=== PATIENT | male | born 1950 | race Caucasian/White ===

== ENCOUNTER 2017-02-19 11:07 | Day surgery (SDC) | payer MEDICARE ==
[~2017-02-19 11:07] MED LIST: ACETAMINOPHEN 1,000 MG/100 ML BTL IV ONE; ACETAMINOPHEN 1000MG/100 ML PREMIX IV ONE; CLINDAMYCIN 600MG/50ML PREMIX 50 ML IVPB ONE; CLINDAMYCIN 600MG/50ML PREMIX 600 MG/50 ML BAG IVPB ONE; FAMOTIDINE 20MG TABLET PO ONE; MECLIZINE 25 MG TABLET PO ONE; METOCLOPRAMIDE 10 MG TABLET PO ONE
[2017-02-19 11:47] LABS: BASO % 0.4 % (0-6); EOS % 2.1 % (0-6); GRAN % 66.8 % (47-80); HEMATOCRIT 44.6 % (42.0-52.0); HEMOGLOBIN 14.9 gm/dl (14.0-18.0); LYMPH % 22.6 % (16-45); MEAN CELL VOLUME 86.6 fl (81-97); MEAN CORPUSCULAR HEMOGLOBIN 28.9 pg (27-33); MEAN CORPUSCULAR HGB CONC 33.4 g/dl (32-36); MEAN PLATELET VOLUME 10.2 fl (7.4-10.4); MONO % 8.1 % (0-9); PLATELET COUNT 245 K/uL (130-400); RED BLOOD COUNT 5.15 M/uL (4.40-5.70); RED CELL DISTRIBUTION WIDTH 13.6 % (11.5-14.5); WHITE BLOOD COUNT W/O DIFF 7.6 K/uL (4.2-12.2)
[2017-02-19 12:03] LABS: BLOOD UREA NITROGEN 25 mg/dL (9-20); EST GLOMERULAR FILTRATION RATE > 60 ml/min; GLUCOSE,RANDOM 107 mg/dL (70-110)
[2017-02-19] MEDS ORDERED: FENTANYL PF 100MCG/2ML VIAL IV ONE (14:00)
[2017-02-19] MEDS ORDERED: MIDAZOLAM HCL 2MG/2ML VIAL IV ONE (14:00)
[2017-02-19] MEDS ORDERED: LIDOCAINE 2% MDV (20MG/ML) 20ML VIAL IV ONE (14:00)
[2017-02-19] MEDS ORDERED: SUCCINYLCHOLINE 20 MG/ML 10ML IVP ONE (14:00)
[2017-02-19] MEDS ORDERED: ROPIVACAINE HCL (NAROPIN) /PF 5MG/ML 20ML VIAL IV ONE (14:00)
[2017-02-19] MEDS ORDERED: PROPOFOL 10 MG/ML VIAL IV ONE (14:00)
[2017-02-19] MEDS ORDERED: SEVOFLURANE 250 ML INH ONE (14:00)
[2017-02-19] MEDS ORDERED: HYDROMORPHONE HCL 2 MG/ML VIAL IV ONE (15:35)
[2017-02-19] MEDS ORDERED: BUPIVACAINE 0.25% W/EPI MPF 30ML VIAL IVP ONE (15:35)
[2017-02-19] MEDS ORDERED: HYDROCODONE/APAP 5/325MG TABLET PO ONE (15:35)
--- NOTE | 2017-02-20 16:39 | Operative Note ---
DATE OF SURGERY: 02/19/2017. REFERRING PHYSICIAN: Dr. Ananda Haddad D.O. PREOPERATIVE DIAGNOSIS: Incisional hernia. POSTOPERATIVE DIAGNOSIS: Incisional hernia. OPERATION: Laparoscopic incisional hernia repair with mesh. Indication: Patient is an 84-year-old male who had a prior robotic prostatectomy. He developed a hernia at his periumbilical site. We did discuss repair, risks, benefits, alternatives. Risks include bleeding, infection, acute and chronic pain, recurrence, injury to underlying visceral structures, and he understood this fully. Consent was signed, questions answered. PROCEDURE: He was taken to the operating room. Placed in supine position. General anesthesia was administered per Department of Anesthesia. Patient's abdomen was prepped and draped in usual sterile fashion. He did undergo a preoperative TAP block per Department of Anesthesia, as well as received prep with antibiotics. At this time, orogastric tube had been inserted. Left upper quadrant region was anesthetized with a total of 3 mL of 0.25% Sensorcaine with epinephrine. A 1.5 cm left upper quadrant incision was made over [place]. Through this, an 11 mm Visiport was placed. All the abdominal layers were traversed under direct visualization until the peritoneal cavity was entered. At this time, we did switch to a 10 mm angled lens. Patient had clustering of 3 hernias just above and to the right of his navel. There were no adhesions, no bowel noted. At this time, an additional 5 mm in the right flank and a 5 mm left flank were then placed. At this time, this was mapped out. The cluster of hernias measured about 3 cm total. A 20 x 15 Proceed mesh was obtained. Double scroll technique was used for 4 preplaced cardinal stitches were placed on the mesh. This was unscrolled upon itself and placed in the peritoneal cavity. The cephalad and caudad transfascial stitches were grasped and held in place. Each side was unscrolled and held in place, as well. A secured cap tacking device was used to tack the mesh in place in a 360 degree fashion radially around the mesh. Inner crown was also placed. The transfascial stitches were then tied down. These were trimmed. Skin dimpling was released. The scope was turned around. There was no bleeding noted and no bowel injury noted. Pneumoperitoneum was released and all ports removed. The fascia was closed with 0 Vicryl in [id number] fashion, the skin in all 3 ports closed with 4-0 Vicryl. He was taken to the recovery room in satisfactory condition. FINDINGS AT TIME OF SURGERY: Incisional hernia. Repaired as above with a 20 x 15 cm Proceed. MTDD
== END 2017-02-19 15:15 | disposition home or self-care (01) ==
LOC: SUR 11:07
PROVIDERS: ATTEND Surgery
DX: K43.2 Incisional hernia without obstruction or gangrene (principal); I10 Essential (primary) hypertension
CPT/HCPCS: 49654; 00832; 85025; 80048; 93005; 93010; 64486; J3010; J1170; J2795; 76942; J0330

== ENCOUNTER 2017-05-09 11:46 | Day surgery (SDC) | payer MEDICARE ==
[2017-05-09 12:11] LABS: BASO % 0.4 % (0-6); EOS % 2.1 % (0-6); GRAN % 68.3 % (47-80); HEMATOCRIT 43.6 % (42.0-52.0); HEMOGLOBIN 14.9 gm/dl (14.0-18.0); LYMPH % 21.2 % (16-45); MEAN CELL VOLUME 85.7 fl (81-97); MEAN CORPUSCULAR HEMOGLOBIN 29.3 pg (27-33); MEAN CORPUSCULAR HGB CONC 34.2 g/dl (32-36); MEAN PLATELET VOLUME 10.1 fl (7.4-10.4); PLATELET COUNT 248 K/uL (130-400); RED BLOOD COUNT 5.09 M/uL (4.40-5.70); RED CELL DISTRIBUTION WIDTH 13.9 % (11.5-14.5); WHITE BLOOD COUNT W/O DIFF 7.5 K/uL (4.2-12.2)
[2017-05-09 12:25] LABS: INR 1.04; PROTHROMBIN TIME (PATIENT) 11.2 SECONDS (9.5-12.1)
[2017-05-09 12:28] LABS: ALBUMIN 4.4 gm/dL (3.5-5.0); ALKALINE PHOSPHATASE 60 U/L (38-126); ALT/SGPT 45 U/L (21-72); ANION GAP 10.5 (7-16); AST/SGOT 21 U/L (17-59); BILIRUBIN,TOTAL 1.24 mg/dL (0.2-1.3); BLOOD UREA NITROGEN 19 mg/dL (9-20); CARBON DIOXIDE 28.5 mmol/L (22-30); CREATININE 0.9 mg/dL (0.66-1.25); EST GLOMERULAR FILTRATION RATE > 60 ml/min; GLUCOSE,RANDOM 96 mg/dL (70-110); TOTAL PROTEIN 6.6 gm/dL (6.3-8.2)
[2017-05-09] MEDS ORDERED: LIDOCAINE 2% MDV (20MG/ML) 20ML VIAL IV ONE (16:01)
[2017-05-09] MEDS ORDERED: PROPOFOL 10 MG/ML VIAL IV ONE (16:01)
[2017-05-09] MEDS ORDERED: MIDAZOLAM HCL 2MG/2ML VIAL IV ONE (16:01)
--- NOTE | 2017-05-09 19:54 | Operative Note ---
DATE OF PROCEDURE: 05/09/17 [employer] FARMER: DEAN HOLLINGSWORTH M.D. HISTORY: Mr. Starks is 66 years old, undergoing elective cardioversion for paroxysmal atrial fibrillation. Mr. Starks is on Xarelto and Toprol-XL. PROCEDURE: After informed consent, the patient was sedated by Anesthesia. Defibrillator pads were placed in the anterior/posterior position. The patient received 200 joules biphasic countershock x1 with successful conversion of atrial fibrillation to sinus rhythm. Mr. Starks and family were directed to continue his current medical regimen and follow-up with Dr. Peck as scheduled in two weeks. FINAL IMPRESSION: SUCCESSFUL CARDIOVERSION OF A-FIB TO SINUS RHYTHM. JOB: [id number] [facility]
== END 2017-05-09 13:45 | disposition home or self-care (01) ==
LOC: SUR 11:46
PROVIDERS: ATTEND Internal Medicine Cardiovascular Disease
DX: I48.0 Paroxysmal atrial fibrillation (principal); E78.5 Hyperlipidemia, unspecified; I10 Essential (primary) hypertension
CPT/HCPCS: 80053; 85025; 85610; 93005